=== PATIENT | male | born 1965 | race Caucasian/White ===

== ENCOUNTER 2016-11-21 10:41 | Emergency (ER) | payer BC ==
[2016-11-21 12:05] VITALS: BP 144/101
--- NOTE | 2016-11-21 12:42 | UC ---
Respiratory Complaint HPI - HPI Summary HPI Summary: URI for 3 weeks. Wants an antibiotic. His had same, got an antibiotic and is now better. Started with ST, head congestion, then moved to chest. Coughing up green phlegm in morning, "I still feel like there's more stuff down there." No further sinus congestion or ST. Good appetite. Cough is better as day goes on. No fever. - History of Current Complaint Chief Complaint: UCRespiratory Stated Complaint: CHEST CONGESTION Time Seen by Provider: 11/21/16 12:29 Hx Obtained From: Patient Onset/Duration: Gradual Onset, Lasting Weeks - 3 Timing: Constant Severity Initially: Mild Severity Currently: Mild Character: Cough: Productive - green, thick phlegm mainly in AM on first awakening Aggravating Factors: Recumbent Position Alleviating Factors: Nothing Associated Signs And Symptoms: Positive: URI, Hoarseness. Negative: Dyspnea, Fever, Chills, Hemoptysis - Risk Factors Pulmonary Embolism Risk Factors: Negative Cardiac Risk Factors: Negative Pseudomonas Risk Factors: Negative Tuberculosis Risk Factors: Negative - Allergies/Home Medications Allergies/Adverse Reactions: Allergies Allergy/AdvReac Type Severity Reaction Status Date / Time No Known Allergies Allergy Verified 11/21/16 12:05 PMH/Surg Hx/FS Hx/Imm Hx Previously Healthy: Yes - Surgical History Surgical History: Yes Surgery Procedure, Year, and Place: APPY - Family History Known Family History: Positive: Hypertension - Social History Occupation: Employed Full-time Lives: With Family Alcohol Use: Occasionally Substance Use Type: None Smoking Status (MU): Never Smoked Tobacco - Immunization History Most Recent Tetanus Shot: GREATER THAN LAST 5 YRS Review of Systems Constitutional: Negative Skin: Negative Eyes: Negative ENT: Negative Respiratory: Cough Cardiovascular: Negative Gastrointestinal: Negative Genitourinary: Negative Motor: Negative Neurovascular: Negative Musculoskeletal: Negative Neurological: Negative Psychological: Negative All Other Systems Reviewed And Are Negative: Yes Physical Exam Triage Information Reviewed: Yes Appearance: Well-Appearing, No Pain Distress, Well-Nourished Vital Signs: Initial Vital Signs Temp 98.9 F 11/21/16 11:54 Pulse 66 11/21/16 11:54 Resp 18 11/21/16 11:54 BP 144/101 11/21/16 11:54 Pulse Ox 100 11/21/16 11:54 Vital Signs Reviewed: Yes Eye Exam: Normal ENT: Positive: Pharyngeal erythema - mild, TMs normal. Negative: Nasal congestion, Nasal drainage, Tonsillar swelling, Tonsillar exudate, Trismus, Muffled/hoarse voice Neck exam: Normal Respiratory Exam: Normal Respiratory: Positive: No respiratory distress, No accessory muscle use, Rhonchi - artur upper airway Cardiovascular Exam: Normal Musculoskeletal Exam: Normal Neurological Exam: Normal Psychological Exam: Normal Skin Exam: Normal UC Diagnostic Evaluation - Laboratory O2 Sat by Pulse Oximetry: 100 Respiratory Course/Dx - Differential Dx/Diagnosis Differential Diagnosis/HQI/PQRI: Bronchitis, Lower Resp Infection, Sinusitis Provider Diagnoses: bronchitis Discharge - Discharge Plan Condition: Stable Disposition: HOME Prescriptions: Azithromycin TAB* [Zithromax TAB (Z-VIJAY) 250 mg #6 tabs] 2 tab PO .TODAY, THEN 1 DAILY #1 vijay Patient Education Materials: Acute Bronchitis (ED) Referrals: Scarlett Liu PA [Primary Care Provider] -
== END 2016-11-21 12:59 | disposition home or self-care (01) ==
LOC: UCCORT 10:41
DX: J40 Bronchitis, not specified as acute or chronic (principal)
CPT/HCPCS: 99212; G0463

== ENCOUNTER 2017-09-24 08:56 | Emergency (ER) | payer BC ==
--- NOTE | 2017-09-24 09:48 | UC ---
Skin Complaint HPI - HPI Summary HPI Summary: Had bite/ sting and got infected. Treated with augmentin for 3 days without improvement. h/o MRSA - History of Current Complaint Chief Complaint: UCUpperExtremity Time Seen by Provider: 09/24/17 09:34 Stated Complaint: RIGHT ARM SKIN COMPLAINT Hx Obtained From: Patient Onset/Duration: Sudden Onset - 1, Worse Since - last 3 days Skin Exposure Onset/Duration: Weeks Ago - 1 Onset Severity: Mild Current Severity: Moderate Location: Discrete - right lateral posterior forearm Character: Swelling, Redness, Painful Aggravating Factor(s): Touch Alleviating Factor(s): Nothing Associated Signs & Symptoms: Positive: Tenderness. Negative: Nausea, Vomiting, Thirst, Diaphoresis, Fever, Chills, Rash Related History: Insect Bite/Sting - Allergy/Home Medications Allergies/Adverse Reactions: Allergies Allergy/AdvReac Type Severity Reaction Status Date / Time No Known Allergies Allergy Verified 09/24/17 09:21 Home Medications: Home Medications Iron Tab 1 tab PO QAM 09/24/17 [History Confirmed 09/24/17] [place]-3 Fatty Acids [Fish Oil] 1,000 mg PO BID 09/24/17 [History Confirmed 09/24] Review of Systems Skin: Other - Redness swelling drainage right forearm Is Patient Immunocompromised?: No All Other Systems Reviewed And Are Negative: Yes PMH/Surg Hx/FS Hx/Imm Hx Previously Healthy: Yes - Surgical History Surgical History: Yes Surgery Procedure, Year, and Place: APPY - Family History Known Family History: Positive: Hypertension Negative: Diabetes - Social History Occupation: Employed Full-time Lives: With Family Alcohol Use: Occasionally Substance Use Type: None Smoking Status (MU): Never Smoked Tobacco Have You Smoked in the Last Year: No - Immunization History Most Recent Tetanus Shot: GREATER THAN LAST 5 YRS Physical Exam Triage Information Reviewed: Yes Appearance: Well-Appearing, No Pain Distress, Well-Nourished Vital Signs: Initial Vital Signs Temp 98.7 F 09/24/17 09:15 Pulse 83 09/24/17 09:15 Resp 20 09/24/17 09:15 BP 150/81 09/24/17 09:15 Vital Signs Reviewed: Yes Eyes: Positive: Conjunctiva Clear Neck exam: Normal Respiratory Exam: Normal Cardiovascular Exam: Normal Bowel Sounds: Positive: Absent Neurological Exam: Normal Psychological Exam: Normal Skin: Positive: Other - erythema on the right forearm [id number] with central induration with scab 8x10cm. No drainage. Course/Dx - Course Course Of Treatment: Not responding to augmentin. ? MRSA, will change to Bactrim. - Differential Diagnoses - Skin Complaint Differential Diagnoses: Abscess, Cellulitis, Lymphadenitis, Lymphangitis - Diagnoses Provider Diagnoses: Cellulitis right arm Discharge - Discharge Plan Condition: Stable Disposition: HOME Prescriptions: Sulfamethox/Trimethoprim DS* [Bactrim DS 800/160 TAB*] 1 tab PO BID #20 tab Patient Education Materials: Cellulitis (ED), Sulfamethoxazole/Trimethoprim ( By mouth) Referrals: Scarlett Liu PA [Primary Care Provider] -
[2017-09-24 09:53] VITALS: BP 150/81
--- NOTE | 2017-09-24 16:57 | ED ---
Progress - Progress Note Progress Note: no change. on bactrim. Course/Dx - Course Course Of Treatment: Not responding to augmentin. ? MRSA, will change to Bactrim. - Diagnoses Provider Diagnoses: Abscess
== END 2017-09-24 10:14 | disposition home or self-care (01) ==
LOC: UCCORT 08:56
DX: L03.113 Cellulitis of right upper limb (principal); B95.62 Methicillin resistant Staphylococcus aureus infection as the cause of diseases classified elsewhere
CPT/HCPCS: 87070; 87077; 87186; 87205; 87640; 87641; 99212; G0463

== ENCOUNTER 2018-02-27 05:45 | Day surgery (SDC) | payer BC ==
[2018-02-27] MEDS ORDERED: ceFAZolin 2 GM PREMIX (*) 2 GM/50 ML BAG IVPB ONE (05:51)
[2018-02-27] MEDS ORDERED: ceFAZolin 1 GM in Dextrose (*) 1 GM/50 ML BAG IVPB ONE (05:51)
[2018-02-27] MEDS ORDERED: Buffered Lidocaine 0.9% SYRIN* 5 ML/SYR SYRINGE ONE (05:51)
[2018-02-27] MEDS ORDERED: Famotidine TAB* 20 MG ONE (05:51)
[2018-02-27] MEDS ORDERED: Dexamethasone IV* 4 MG/ML 1 ML (4 MG) ONE (05:51)
[2018-02-27] MEDS ORDERED: Dexamethasone IV* 4 MG/ML 1 ML (4 MG) IV SLOW PU ONE (06:00)
[2018-02-27] MEDS ORDERED: Buffered Lidocaine 0.9% SYRIN* 5 ML/SYR SYRINGE INTRADERM ONE (06:00)
[2018-02-27] MEDS ORDERED: Famotidine IV* 10 MG/ML 2 ML (20 mg) IV ONE (06:00)
[2018-02-27] MEDS ORDERED: Midazolam* 1 MG/ML 5 ML VIAL (5 MG) ONE (07:17)
[2018-02-27] MEDS ORDERED: fentaNYL* 50 MCG/ML 2 ML VIAL (100 MCG VIAL) ONE ×2 (07:17→07:41)
[2018-02-27] MEDS ORDERED: Lidocaine 2% PF * 5 ML VIAL ONE (07:19)
[2018-02-27] MEDS ORDERED: Lidocaine 2% PF* 10 ML AMP ONE ×2 (07:19→07:53)
[2018-02-27] MEDS ORDERED: Propofol* 500 MG/50 ML BTL ONE (07:20)
[2018-02-27] MEDS ORDERED: Bupivacaine 0.25% SDV* 30 ML ONE (07:20)
[2018-02-27] MEDS ORDERED: HYDROcodone/ACETAMIN 5-325 MG* 1 TAB PO PRN (07:28)
[2018-02-27] MEDS ORDERED: Naloxone* 0.4 MG/ML 1 ML VIAL IV PRN (07:28)
[2018-02-27] MEDS ORDERED: oxyCODONE/Acetamin 5/325 MG* TAB PO PRN (07:28)
[2018-02-27] MEDS ORDERED: fentaNYL* 50 MCG/ML 2 ML VIAL (100 MCG VIAL) IV PRN (07:28)
[2018-02-27] MEDS ORDERED: PROCHLORPERAZINE INJ 5 MG/ML 2 ML VIAL IV PRN (07:28)
[2018-02-27] MEDS ORDERED: Ketorolac INJ* 30 MG/ML 1 ML VIAL ONE (07:57)
[2018-02-27] MEDS ORDERED: Ondansetron INJ* 2 MG/ML VIAL ONE (08:29)
[2018-02-27 09:54] VITALS: BP 130/84
--- NOTE | 2018-02-27 15:28 | RAD ---
Indication: LEFT foot first metatarsal fusion. Comparison: February 08, 2018 Technique: 3 seconds fluoroscopy. Report: Spot images document a cortical plate and multiple screws traversing the first metatarsal phalangeal joint as well as percutaneous fixation wires projecting through the second, third, and fourth toes as far proximal as the metatarsal phalangeal joints. Pre-existing fixation wire fragment at the third proximal phalanx. IMPRESSION: Intraoperative fluoroscopy.
--- NOTE | 2018-02-27 22:37 | OP ---
OPERATIVE REPORT: DATE OF OPERATION: 02/27/18 - [facility] DATE OF : 61 ATTENDING SURGEON: Arnaud Gonzalez MD SODA JERKER: Alyssa Carver PA-C ANESTHESIOLOGIST: Vargas Ochoa MD ANESTHESIA: MAC. PRE-OP DIAGNOSIS: Left forefoot hallux valgus with 2nd, 3rd, and 4th interphalangeal deformity. POST-OP DIAGNOSIS: Left forefoot hallux valgus with 2nd, 3rd, and 4th interphalangeal deformity. OPERATIVE PROCEDURE: Left 1st MTP joint fusion, 2nd MTP joint capsulectomy, 2nd and 3rd PIP resection arthroplasty, and 4th DIP resection arthroplasty. DESCRIPTION OF PROCEDURE: The patient was taken to the operating room where a longitudinal incision was made over the dorsum of the 1st MTP joint. Medial lateral flap was raised and we used the cone and cup reamers to prepare the joint for arthrodesis. An oblique 3.0 mm cannulated screw was placed across the joint and then a dorsal Arthrex 1st MTP fusion plate. This was fixed with a combination of locking and unlocking screws. We then made a longitudinal incision lateral to the 2nd MTP joint releasing the lateral collateral ligament and the brevis tendon. At the PIP level, we made a transverse elliptical incision, removing the condyles with a small sagittal saw and then pinning the entire 2nd toe longitudinally with a 0.062 C-wire. The 3rd toe hammer toe was approached through a transverse elliptical dorsal incision with a similar approach removing the condyles with a small sagittal saw and pinning this longitudinally with a 0.062 C-wire. The 4th toe had more of a mallet toe deformity, so a DIP resection arthroplasty was performed again through a transverse elliptical incision removing the condyles and pinning this longitudinally with a similar pin. X-rays intraoperatively showed satisfactory position of all hardware. The 4th toe pin missed the MTP joint, but this was not important as this was a DIP resection arthroplasty. All wounds were irrigated thoroughly and closed with Vicryl when needed, nylon for the skin and a compression dressing applied. [id number]/[facility] #: [id number] [facility]
== END 2018-02-27 10:15 | disposition home or self-care (01) ==
LOC: OR 05:45
PROVIDERS: ATTEND Orthopaedic Surgery
DX: M20.12 Hallux valgus (acquired), left foot (principal); M20.42 Other hammer toe(s) (acquired), left foot
CPT/HCPCS: 76001; A9270-GY; C1713; C1776; J0690; J1100; J1885; J2001; J2250; J2405; J2704; J3010